=== PATIENT | female | born 1965 | race Caucasian/White ===

== ENCOUNTER 2021-05-27 18:41 | Inpatient (IN) | payer OTHER ==
[~2021-05-27] VITALS: Ht 162 cm; Wt 134.8 kg
[2021-05-27] MEDS ORDERED: RT-ALBUTEROL INHALER HFA (VENTOLIN HFA) 18 GM IH ONE (19:20)
[2021-05-27] MEDS ORDERED: LACTATED RINGERS 1,000 ML IV ONE ×2 (19:20→19:30)
[2021-05-27 19:39] LABS: BASOPHILS % (AUTO) 0 % (0-10); EOSINOPHILS % (AUTO) 0 % (0-10); HEMATOCRIT 44 % (35-52); HEMOGLOBIN 14.3 g/dL (11.5-16.0); LYMPHOCYTES # (AUTO) 1.9 10^3/uL (1.0-4.0); LYMPHOCYTES % (AUTO) 37 % (12-44); MEAN CORPUSCULAR HEMOGLOBIN 30 pg (25-34); MEAN CORPUSCULAR HGB CONC 32 g/dL (32-36); MEAN CORPUSCULAR VOLUME 92 fL (80-99); MEAN PLATELET VOLUME 12.1 fL (9.0-12.2); MONOCYTES # (AUTO) 0.3 10^3/uL (0.0-1.0); MONOCYTES % (AUTO) 5 % (0-12); NEUTROPHILS # (AUTO) 2.9 10^3/uL (1.8-7.8); NEUTROPHILS % (AUTO) 57 % (42-75); PLATELET COUNT 200 10^3/uL (130-400)
[2021-05-27] MEDS ORDERED: dexAMETHasone 6 MG TAB (DECADRON) PO STA (19:50)
[2021-05-27 20:05] LABS: INR 0.9 (0.8-1.4); PROTHROMBIN TIME PATIENT 12.6 SEC (12.2-14.7)
[2021-05-27 20:12] LABS: ALBUMIN 3.8 GM/DL (3.2-4.5); BILIRUBIN,TOTAL 0.5 MG/DL (0.1-1.0); CALCIUM 8.7 MG/DL (8.5-10.1); CREATININE SERUM 1.03 MG/DL (0.60-1.30); POTASSIUM 4.1 MMOL/L (3.6-5.0); TOTAL PROTEIN 7.4 GM/DL (6.4-8.2)
--- NOTE | 2021-05-27 20:21 | Diagnostic Imaging Report ---
EXAMINATION: Chest 1 view HISTORY: Sepsis. Covid positive. COMPARISON: None available. FINDINGS: The lung volumes are normal. Patchy opacities are seen in the left mid and lower lung. No large pleural effusion or pneumothorax is seen. The cardiomediastinal silhouette is normal in size and contour. No acute osseous abnormality is seen. IMPRESSION: 1. Patchy opacities in the mid and lower left lung, concerning for pneumonia. No pleural effusion. Dictated by: Dictated on workstation # [id number]
--- NOTE | 2021-05-27 20:51 | ED General ---
General Chief Complaint: Respiratory Problems Stated Complaint: COVID POSITIVE/ SOB Nursing Triage Note: stated symptoms started last wednesday, tested positive on wednesday for COVID, states has not eaten, has had lose stools Source of Information: Patient Exam Limitations: No Limitations History of Present Illness Date Seen by Provider: May 27, 2021 Time Seen by Provider: 19:15 Initial Comments Here with report of shortness of air. Has history of Covid positive test as of May 22 but onset of symptoms back to May 18 or . is also here who was positive and had positive test on May 17. She does complain of shortness of air worsening with cough, fever, chills, fatigue, headache, weakness and overall just not feeling well. Denies nausea or vomiting. States she would have got tested earlier but she was just too tired to test. She and her both sought care in [place] last night but the waiting room was too busy so they went home. Primary care is in [place]. Timing/Duration: Getting Worse, Other (7 to 10 days) Severity: Moderate Associated Systoms: No Chest Pain; Cough, Fever/Chills, Headaches; No Nausea/Vo miting; Shortness of Air, Weakness Allergies and Home Medications Allergies Coded Allergies: No Known Drug Allergies (Unverified , 05/27/21) Patient Home Medication List Home Medication List Reviewed: Yes Review of Systems Review of Systems Constitutional: see HPI, chills, fever, malaise, weakness EENTM: nose congestion; No throat pain Respiratory: cough, short of breath Cardiovascular: no symptoms reported Gastrointestinal: No abdominal pain; loss of appetite; No nausea, No vomiting Genitourinary: no symptoms reported : No Musculoskeletal: muscle pain, muscle weakness Skin: no symptoms reported Psychiatric/Neurological: See HPI Hematologic/Lymphatic: No Symptoms Reported All Other Systems Reviewed Negative Unless Noted: Yes Past Chvuuex-Mfpwkf-Ueijon Hx Patient Social History Tobacco Use?: No Use of E-Cig and/or Vaping dev: No Substance use?: No Alcohol Use?: No Past Medical History Surgeries: Yes Section Respiratory: No Cardiac: No Neurological: No : No Genitourinary: No Gastrointestinal: No Musculoskeletal: No Endocrine: No HEENT: No Family Medical History Reviewed and Corrections made No Pertinent Family Hx Physical Exam-Suspected Sepsis Physical Exam Vital Signs Vital Signs - First Documented 05/27/21 05/27/21 19:10 19:16 Temp 38.6 Pulse 105 Resp 22 B/P (MAP) 144/78 (100) Pulse Ox 89 O2 Delivery Room Air O2 Flow Rate 2.00 Capillary Refill : Less Than 3 Seconds Blood Pressure Mean: 100 Height, Weight, BMI Height: '" Weight: lbs. oz. kg; 51.00 BMI Method: General Appearance: No Apparent Distress, WD/WN HEENT: PERRL/EOMI, Pharynx Normal Neck: Non Tender, Supple Respiratory: Crackles, Expiration, Wheezing Cardiovascular: Regular Rate, Rhythm, No Murmur Gastrointestinal: Non Tender, Soft Back: Normal Inspection, No CVA Tenderness, No Vertebral Tenderness Extremity: Normal Range of Motion, Non Tender Neurologic/Psychiatric: Alert, Oriented x3 Skin: normal color, warm/dry Focused Exam Lactate Level 05/27/21 19:30: Lactic Acid Level 1.37 Lactic Acid Level Laboratory Tests Test 05/27/21 19:30 Lactic Acid Level 1.37 MMOL/L (0.50-2.00) Progress/Results/Core Measures Suspected Sepsis SIRS Temperature: Pulse: 105 Respiratory Rate: 22 Laboratory Tests 05/27/21 19:20: White Blood Count 5.0 Blood Pressure 144 /78 Mean: 100 05/27/21 19:30: Lactic Acid Level 1.37 Laboratory Tests 05/27/21 19:20: Platelet Count 200 05/27/21 19:30: Creatinine 1.03, INR Comment 0.9, Total Bilirubin 0.5 Results/Orders Lab Results Laboratory Tests Test 05/27/21 19:20 05/27/21 19:30 Range/Units White Blood Count 5.0 4.3-11.0 10^3/uL Red Blood Count 4.82 3.80-5.11 10^6/uL Hemoglobin 14.3 11.5-16.0 g/dL Hematocrit 44 35-52 % Mean Corpuscular Volume 92 80-99 fL Mean Corpuscular Hemoglobin 30 25-34 pg Mean Corpuscular Hemoglobin Concent 32 32-36 g/dL Red Cell Distribution Width 13.8 10.0-14.5 % Platelet Count 200 130-400 10^3/uL Mean Platelet Volume 12.1 9.0-12.2 fL Immature Granulocyte % (Auto) 0 % Neutrophils (%) (Auto) 57 42-75 % Lymphocytes (%) (Auto) 37 12-44 % Monocytes (%) (Auto) 5 0-12 % Eosinophils (%) (Auto) 0 0-10 % Basophils (%) (Auto) 0 0-10 % Neutrophils # (Auto) 2.9 1.8-7.8 10^3/uL Lymphocytes # (Auto) 1.9 1.0-4.0 10^3/uL Monocytes # (Auto) 0.3 0.0-1.0 10^3/uL Eosinophils # (Auto) 0.0 0.0-0.3 10^3/uL Basophils # (Auto) 0.0 0.0-0.1 10^3/uL Immature Granulocyte # (Auto) 0.0 0.0-0.1 10^3/uL Prothrombin Time 12.6 12.2-14.7 SEC INR Comment 0.9 0.8-1.4 Activated Partial Thromboplast Time 28 24-35 SEC Sodium Level 134 L 135-145 MMOL/L Potassium Level 4.1 3.6-5.0 MMOL/L Chloride Level 96 L 98-107 MMOL/L Carbon Dioxide Level 28 21-32 MMOL/L Anion Gap 10 5-14 MMOL/L Blood Urea Nitrogen 14 7-18 MG/DL Creatinine 1.03 0.60-1.30 MG/DL Estimat Glomerular Filtration Rate 56 BUN/Creatinine Ratio 14 Glucose Level 108 H 70-105 MG/DL Lactic Acid Level 1.37 0.50-2.00 MMOL/L Calcium Level 8.7 8.5-10.1 MG/DL Corrected Calcium 8.9 8.5-10.1 MG/DL Total Bilirubin 0.5 0.1-1.0 MG/DL Aspartate Amino Transf (AST/SGOT) 71 H 5-34 U/L Alanine Aminotransferase (ALT/SGPT) 51 0-55 U/L Alkaline Phosphatase 64 40-136 U/L C-Reactive Protein High Sensitivity 5.45 H 0.00-0.50 MG/DL Total Protein 7.4 6.4-8.2 GM/DL Albumin 3.8 3.2-4.5 GM/DL My Orders Orders - LEXIS CHU MD Albuterol Inhaler (Ventolin Hfa) (05/27/21 19:20) Lactated Ringers (Lr 1000 Ml Iv Solution (05/27/21 19:20) Dexamethasone Tablet (Decadron Tablet) (05/27/21 19:50) Fibrin Degradation Products (05/27/21 20:25) Medications Given in ED Current Medications Medications Dose Ordered Sig/Rubin Route Start Time Stop Time Status Last Admin Dose Admin Albuterol Sulfate 18 gm STK-MED ONCE IH 05/27/21 19:20 05/27/21 19:23 DC 05/27/21 19:28 18 GM Lactated Ringer's 1,000 ml @ ud STK-MED ONCE IV 05/27/21 19:20 05/27/21 19:23 DC 05/27/21 19:28 1,000 MLS/HR Vital Signs/I&O 05/27/21 05/27/21 19:10 19:16 Temp 38.6 Pulse 105 Resp 22 B/P (MAP) 144/78 (100) Pulse Ox 89 93 O2 Delivery Room Air O2 Flow Rate 2.00 Capillary Refill : Less Than 3 Seconds Blood Pressure Mean: 100 Progress Note : Progress Note Seen and evaluated. Sepsis protocol initiated. LR 1 L bolus, albuterol inhaler 4 puffs via spacer and Decadron 6 mg p.o. ordered. Patient was 88% on room air and O2 initiated at 2 L via nasal cannula. Monitor patient. 2031: Somewhat better after initial therapy but still requiring oxygen. Chest x-ray findings consistent with Covid pneumonia without bacterial involvement currently. We will initiate COVID-19 order set. I did discuss the case with Dr. Hunter and she accepts patient for admission, inpatient status to the hospitalist service agrees with COVID-19 order set. Discussed with patient and family who agree with plan. Diagnostic Imaging Diagonstic Imaging: Xray Plain Films/CT/US/NM/MRI: chest Comments [facility], [place] NAME: BETTY MCCALL Nela [facility] REC#: [id number] PT STATUS: REG ER : 1965 PHYSICIAN: CARLOS RUELAS APRN ADMIT DATE: 05/27/21/ER Signed Date of Exam:05/27/21 CHEST 1 VIEW, AP/PA ONLY EXAMINATION: Chest 1 view HISTORY: Sepsis. Covid positive. COMPARISON: None available. FINDINGS: The lung volumes are normal. Patchy opacities are seen in the left mid and lower lung. No large pleural effusion or pneumothorax is seen. The cardiomediastinal silhouette is normal in size and contour. No acute osseous abnormality is seen. IMPRESSION: 1. Patchy opacities in the mid and lower left lung, concerning for pneumonia. No pleural effusion. Dictated by: Dictated on workstation # [id number] Dict: 05/27/[id number] Trans: 05/27/212026 [facility] [id number] Interpreted by: LAYA MARQUEZ DO Electronically signed by: LAYA MARQUEZ DO 05/27/212026 Reviewed: Reviewed by Me Departure Communication (Admissions) Time/Spoke to Admitting Phy: 20:32 Impression Primary Impression: Pneumonia due to COVID-19 virus Additional Impression: Hypoxia Disposition: ADMITTED INPATIENT Condition: Stable Admissions Decision to Admit Reason: Admit from ER (General) Decision to Admit/Date: May 27, 2021 Time/Decision to Admit Time: 20:32 LEXIS CHU MD May 27, 2021 20:51
[2021-05-27] MEDS ORDERED: DOCUSATE SODIUM 100 MG (COLACE) CAP PO PRN (22:00)
[2021-05-27] MEDS ORDERED: ONDANSETRON 4 MG/2 ML (SDV) Z0FRAN IVP PRN (22:00)
[2021-05-27] MEDS ORDERED: diphenhydrAMINE 25 MG TAB (BENADRYL) PO PRN (22:00)
[2021-05-27] MEDS ORDERED: HYDROcodone/APAP 5 MG/325 MG (LORTAB) TAB PO PRN (22:00)
[2021-05-27] MEDS ORDERED: ALPRAZolam 0.25 MG (XANAX) TAB PO PRN (22:00)
[2021-05-27] MEDS ORDERED: RT-ALBUTEROL INHALER HFA (VENTOLIN HFA) 18 GM IH SCH (22:00)
[2021-05-27] MEDS ORDERED: ACETAMINOPHEN 500 MG TAB (TYLENOL) PO PRN (22:00)
[2021-05-27] MEDS ORDERED: MELATONIN 3 MG TABLET PO PRN (22:00)
[2021-05-27] MEDS ORDERED: ONDANSETRON 4 MG (ZOFRAN) ORAL DISSOLVE TAB PO PRN (22:00)
[2021-05-27] MEDS ORDERED: CALCIUM CARBONATE 500 MG (TUMS) TAB.CHEW PO PRN (22:00)
[2021-05-27] MEDS ORDERED: LOPERAMIDE 2 MG (IMODIUM) TABLET PO PRN (22:00)
[2021-05-27 22:28] VITALS: BP 135/82
[2021-05-27 22:30] VITALS: BP 135/82
[2021-05-27 23:28] VITALS: BP 146/82
[2021-05-27 23:30] VITALS: BP 146/82
[2021-05-28] MEDS ORDERED: RT-ALBUTEROL INHALER HFA (VENTOLIN HFA) 18 GM IH PRN ×2 (00:15→02:00)
[2021-05-28] MEDS ORDERED: LACTATED RINGERS 1,000 ML IV SCH (00:15)
[2021-05-28] MEDS ORDERED: guaiFENesin SYRUP 100 MG/5 ML 10 ML (ROBITUSSIN SF) PO PRN (00:15)
[2021-05-28] MEDS ORDERED: ONDANSETRON 4 MG/5 ML ORAL SOLN (ZOFRAN) 5 ML PO PRN (00:15)
[2021-05-28] MEDS ORDERED: IPRATROPIUM INHALER (ATROVENT) 12.9 GM INH PRN (00:15)
[2021-05-28] MEDS ORDERED: ENOXAPARIN 40 MG/0.4 ML (LOVENOX) SYR SC SCH (00:15)
[2021-05-28 01:55] VITALS: BP 146/82
[2021-05-28] MEDS ORDERED: ALBUTEROL/IPRATROP (COMBIVENT RESPIMAT) 4 GM INHALER INH SCH (03:00)
[2021-05-28 03:46] VITALS: BP 121/69
[2021-05-28 08:28] LABS: BASOPHILS % (AUTO) 0 % (0-10); EOSINOPHILS % (AUTO) 0 % (0-10); HEMATOCRIT 39 % (35-52); HEMOGLOBIN 12.8 g/dL (11.5-16.0); LYMPHOCYTES # (AUTO) 1.2 10^3/uL (1.0-4.0); LYMPHOCYTES % (AUTO) 38 % (12-44); MEAN CORPUSCULAR HEMOGLOBIN 30 pg (25-34); MEAN CORPUSCULAR HGB CONC 33 g/dL (32-36); MEAN CORPUSCULAR VOLUME 92 fL (80-99); MEAN PLATELET VOLUME 10.6 fL (9.0-12.2); MONOCYTES # (AUTO) 0.2 10^3/uL (0.0-1.0); MONOCYTES % (AUTO) 6 % (0-12); NEUTROPHILS # (AUTO) 1.8 10^3/uL (1.8-7.8); NEUTROPHILS % (AUTO) 56 % (42-75); PLATELET COUNT 186 10^3/uL (130-400); WHITE BLOOD COUNT 3.2 10^3/uL (4.3-11.0)
[2021-05-28 08:46] LABS: ALBUMIN 3.4 GM/DL (3.2-4.5)
[2021-05-28 08:47] LABS: CHLORIDE 101 MMOL/L (98-107); POTASSIUM 4.1 MMOL/L (3.6-5.0); SODIUM 136 MMOL/L (135-145)
[2021-05-28 08:48] VITALS: BP 136/84
[2021-05-28 08:48] LABS: CALCIUM 8.4 MG/DL (8.5-10.1)
[2021-05-28 08:49] LABS: GLUCOSE 126 MG/DL (70-105); TOTAL PROTEIN 6.6 GM/DL (6.4-8.2)
[2021-05-28 08:50] LABS: CARBON DIOXIDE 28 MMOL/L (21-32)
[2021-05-28 08:51] LABS: BILIRUBIN,TOTAL 0.4 MG/DL (0.1-1.0)
[2021-05-28 08:52] LABS: ALKALINE PHOSPHATASE 55 U/L (40-136)
[2021-05-28 08:53] LABS: CREATININE SERUM 0.76 MG/DL (0.60-1.30); GFR ESTIMATED > 60
[2021-05-28 08:54] LABS: BUN/CREATININE RATIO 14
[2021-05-28 08:56] LABS: ALANINE AMINOTRANSFERASE 45 U/L (0-55)
[2021-05-28] MEDS: polyethylene glycoL POWDER 17 GM (MIRALAX) PACK PO SCH ×2 (09:13→21:41)
[2021-05-28] MEDS: dexAMETHasone 6 MG TAB (DECADRON) PO SCH (09:13)
[2021-05-28] MEDS: SENNA W/DOCUSATE (SENOKOT S) TABLET PO SCH ×2 (09:13→21:41)
[2021-05-28] MEDS: ENOXAPARIN 60 MG/0.6 ML (LOVENOX) SYR SC SCH ×2 (09:14→21:45)
[2021-05-28] MEDS ORDERED: ACETAMINOPHEN 325 MG TABLET PO PRN (10:00)
[2021-05-28] MEDS: RT-ALBUTEROL INHALER HFA (VENTOLIN HFA) 18 GM IH SCH ×3 (10:44→21:30)
[2021-05-28] MEDS ORDERED: LEVO50TA6 PO (11:12)
[2021-05-28 12:09] VITALS: BP 110/62
--- NOTE | 2021-05-28 15:31 | History & Physical-Hospitalist ---
History of Present Illness HPI/Chief Complaint Lety Wagner is a 55 year old female with PMH hypothyroidism, morbid obesity, who presented with shortness of breath. She was diagnosed with COVID last week. She attended a wedding about 11 days ago and started having symptoms shortly after. She has been having fevers. She has had a cough. She has had some diarrhea. She lost her sense of taste and smell and says "everything tastes like salt". She denies nausea and vomiting. She denies chest pain. She denies abdominal pain. She has had headaches. She feels weak. She denies leg swelling. She did not get the COVID vaccine. Several family members are also sick. Source: patient Exam Limitations: no limitations Date Seen 05/28/21 Time Seen by a Provider: 10:20 Attending Physician Glo Hunter DO PCP Referring Physician Date of Admission May 27, 2021 at 20:31 Home Medications & Allergies Home Medications Reviewed patient Home Medication Reconciliation performed by pharmacy medication reconciliations renewable energy technician and/or nursing. Patients Allergies have been reviewed. Allergies Allergies Coded Allergies No Known Drug Allergies (Unverified05/27/21) Past Oibvsri-Uxemqz-Gmlrwc Hx Patient Social History Tobacco Use?: No Use of E-Cig and/or Vaping dev: No Substance use?: No Alcohol Use?: Yes Alcohol type: Wine Alcohol Frequency: Once in a while Pt feels they are or have been: No Current Status status: No status: No Advance Directives: Unable to obtain Communicates: Verbally Primary Language: Kazakh Preferred Spoken Language: Kazakh Is interpretation needed?: No Implanted or Applied Medical D: None Past Medical History Surgeries: Section Hypothyroidsim Family Medical History Reviewed and Corrections made No Pertinent Family Hx Review of Systems Constitutional: fever, malaise, weakness EENTM: no symptoms reported Respiratory: cough, phlegm, short of breath Gastrointestinal: diarrhea Genitourinary: no symptoms reported Musculoskeletal: no symptoms reported Skin: no symptoms reported Psychiatric/Neurological: No Symptoms Reported Physical Exam Physical Exam Vital Signs Vital Signs - First Documented 05/27/21 05/27/21 19:10 19:16 Temp 38.6 Pulse 105 Resp 22 B/P (MAP) 144/78 (100) Pulse Ox 89 O2 Delivery Room Air O2 Flow Rate 2.00 Capillary Refill : Less Than 3 Seconds Height, Weight, BMI Height: '" Weight: lbs. oz. kg; 49.64 BMI Method: General Appearance: No Apparent Distress, Obese, Other (appears uncomfortable) HEENT: PERRL/EOMI, Pharynx Normal Neck: Normal Inspection, Supple Respiratory: No Respiratory Distress, Decreased Breath Sounds Cardiovascular: Regular Rate, Rhythm, No Edema, No Murmur Gastrointestinal: Normal Bowel Sounds, Non Tender, Soft Extremity: Normal Inspection, Non Tender, No Pedal Edema Neurologic/Psychiatric: Alert, Oriented x3, No Motor/Sensory Deficits, Other (flat affect) Skin: Normal Color, Warm/Dry Lymphatic: No Adenopathy Results Results/Procedures Labs Laboratory Tests 05/27/21 19:20 05/27/21 19:30 05/28/21 08:16 Patient resulted labs reviewed. Imaging: Reviewed Imaging Report Assessment/Plan Admission Diagnosis Acute respiratory failure due to COVID-19 Admission Status: Inpatient Order (span 2 midnights) Reason for Inpatient Admission: Requiring supplemental oxygen Assessment and Plan Acute respiratory failure due to COVID-19 Pneumonia due to COVID-19 Leukopenia Elevated LFTs Elevated d-dimer COVID positive at outside facility Chest xray consistent with COVID pneumonia D-dimer slightly elevated, monitor Procalcitonin normal, antibiotics not indicated Started on Decadron Outside window for Remdesivir Convalescent plasma ordered, discussed risks/benefits/EUA use and patient agrees Supplemental oxygen as needed Consult pulmonology Morbid obesity Clinically significant, no acute management needs Hypothyroidism Continue Synthroid DVT prophylaxis: Lovenox Diagnosis/Problems Diagnosis/Problems (1) Acute respiratory failure due to COVID-19 Status: Acute (2) Leukopenia Status: Acute Qualifiers: Leukopenia type: unspecified Qualified Codes: D72.819 - Decreased white blood cell count, unspecified (3) Elevated d-dimer Status: Acute (4) Elevated LFTs Status: Acute (5) Morbid obesity Status: Chronic (6) Hypothyroidism Status: Chronic AROLDO DAWN MD May 28, 2021 15:31
[2021-05-28 16:18] VITALS: BP 100/58
[2021-05-28 19:33] VITALS: BP 116/53
[2021-05-29] VITALS (9 sets, daily range): BP systolic 102–122; BP diastolic 53–67
[2021-05-29] MEDS: RT-ALBUTEROL INHALER HFA (VENTOLIN HFA) 18 GM IH SCH ×3 (03:09→21:42)
[2021-05-29] MEDS: LEVOTHYROXINE 50 MCG (LEVOTHROID) TAB PO SCH (06:40)
[2021-05-29 06:42] LABS: BASOPHILS % (AUTO) 0 % (0-10); EOSINOPHILS % (AUTO) 0 % (0-10); HEMATOCRIT 38 % (35-52); HEMOGLOBIN 12.2 g/dL (11.5-16.0); LYMPHOCYTES # (AUTO) 1.1 10^3/uL (1.0-4.0); LYMPHOCYTES % (AUTO) 28 % (12-44); MEAN CORPUSCULAR HEMOGLOBIN 30 pg (25-34); MEAN CORPUSCULAR HGB CONC 32 g/dL (32-36); MEAN CORPUSCULAR VOLUME 93 fL (80-99); MEAN PLATELET VOLUME 10.6 fL (9.0-12.2); MONOCYTES # (AUTO) 0.2 10^3/uL (0.0-1.0); MONOCYTES % (AUTO) 4 % (0-12); NEUTROPHILS # (AUTO) 2.8 10^3/uL (1.8-7.8); NEUTROPHILS % (AUTO) 68 % (42-75); PLATELET COUNT 191 10^3/uL (130-400); WHITE BLOOD COUNT 4.1 10^3/uL (4.3-11.0)
[2021-05-29 06:52] LABS: CHLORIDE 100 MMOL/L (98-107); POTASSIUM 3.9 MMOL/L (3.6-5.0); SODIUM 137 MMOL/L (135-145)
[2021-05-29 06:53] LABS: CALCIUM 7.9 MG/DL (8.5-10.1)
[2021-05-29 06:54] LABS: GLUCOSE 106 MG/DL (70-105)
[2021-05-29 06:55] LABS: CARBON DIOXIDE 26 MMOL/L (21-32)
[2021-05-29 06:58] LABS: CREATININE SERUM 0.76 MG/DL (0.60-1.30); GFR ESTIMATED > 60
[2021-05-29 06:59] LABS: BUN/CREATININE RATIO 11
[2021-05-29] MEDS: polyethylene glycoL POWDER 17 GM (MIRALAX) PACK PO SCH ×2 (09:25→20:54)
[2021-05-29] MEDS: SENNA W/DOCUSATE (SENOKOT S) TABLET PO SCH ×2 (09:25→20:54)
[2021-05-29] MEDS: dexAMETHasone 6 MG TAB (DECADRON) PO SCH (10:21)
[2021-05-29] MEDS: ENOXAPARIN 60 MG/0.6 ML (LOVENOX) SYR SC SCH ×2 (10:21→21:38)
--- NOTE | 2021-05-29 12:01 | Progress Note - Hospitalist ---
Subjective HPI/CC On Admission Date Seen by Provider: May 29, 2021 Time Seen by Provider: 11:00 Lety Wagner is a 55 year old female with PMH hypothyroidism, morbid obesity, who presented with shortness of breath. She was diagnosed with COVID last week. She attended a wedding about 11 days ago and started having symptoms shortly a fter. She has been having fevers. She has had a cough. She has had some diarrhea. She lost her sense of taste and smell and says "everything tastes like salt". She denies nausea and vomiting. She denies chest pain. She denies abdominal pain. She has had headaches. She feels weak. She denies leg swelling. She did not get the COVID vaccine. Several family members are also sick. Subjective/Events-last exam She is feeling better today. She still has some shortness of breath. She still has a cough. She is not having fevers. She has been eating and drinking. Focused Exam Lactate Level 05/27/21 19:30: Lactic Acid Level 1.37 Objective Exam Vital Signs Vital Signs Date Time Temp Pulse Resp B/P (MAP) Pulse Ox O2 Delivery O2 Flow Rate FiO2 05/29/21 10:39 95 High Flow N/C 5.00 05/29/21 08:00 36.2 87 20 102/67 (79) Capillary Refill : Less Than 3 Seconds General Appearance: No Apparent Distress, Obese Respiratory: No Respiratory Distress, Decreased Breath Sounds Cardiovascular: Regular Rate, Rhythm, No Edema, No Murmur Gastrointestinal: Normal Bowel Sounds, Non Tender, Soft Extremity: Normal Inspection, Non Tender, No Pedal Edema Neurologic/Psychiatric: Alert, Oriented x3, No Motor/Sensory Deficits, Other (Flat affect) Skin: Normal Color, Warm/Dry Results/Procedures Lab Laboratory Tests 05/29/21 06:32 Patient resulted labs reviewed. Imaging: Reviewed Imaging Report Assessment/Plan Assessment and Plan Assess & Plan/Chief Complaint Acute respiratory failure due to COVID-19 Pneumonia due to COVID-19 Leukopenia, resolved Elevated LFTs Elevated d-dimer D-dimer improved Procalcitonin negative Continue Decadron Outside window for Remdesivir Convalescent plasma ordered, not yet given Supplemental oxygen as needed, stable Pulmonology consulted Morbid obesity Clinically significant, no acute management needs Hypothyroidism Continue Synthroid DVT prophylaxis: Lovenox Diagnosis/Problems Diagnosis/Problems (1) Acute respiratory failure due to COVID-19 Status: Acute (2) Leukopenia Status: Acute Qualifiers: Leukopenia type: unspecified Qualified Codes: D72.819 - Decreased white blood cell count, unspecified (3) Elevated d-dimer Status: Acute (4) Elevated LFTs Status: Acute (5) Morbid obesity Status: Chronic (6) Hypothyroidism Status: Chronic AROLDO DAWN MD May 29, 2021 12:00
[2021-05-29] MEDS ORDERED: NS IV 500 ML 500 ML ONE (19:37)
[2021-05-30 00:35] VITALS: BP 102/57
[2021-05-30] MEDS: RT-ALBUTEROL INHALER HFA (VENTOLIN HFA) 18 GM IH SCH ×4 (02:17→20:24)
[2021-05-30 04:00] VITALS: BP 118/70
[2021-05-30 05:52] LABS: BASOPHILS % (AUTO) 0 % (0-10); EOSINOPHILS % (AUTO) 0 % (0-10); HEMATOCRIT 38 % (35-52); HEMOGLOBIN 12.1 g/dL (11.5-16.0); LYMPHOCYTES # (AUTO) 0.9 10^3/uL (1.0-4.0); LYMPHOCYTES % (AUTO) 39 % (12-44); MEAN CORPUSCULAR HEMOGLOBIN 30 pg (25-34); MEAN CORPUSCULAR HGB CONC 32 g/dL (32-36); MEAN CORPUSCULAR VOLUME 93 fL (80-99); MEAN PLATELET VOLUME 10.2 fL (9.0-12.2); MONOCYTES # (AUTO) 0.2 10^3/uL (0.0-1.0); MONOCYTES % (AUTO) 9 % (0-12); NEUTROPHILS # (AUTO) 1.2 10^3/uL (1.8-7.8); NEUTROPHILS % (AUTO) 52 % (42-75); PLATELET COUNT 210 10^3/uL (130-400); WHITE BLOOD COUNT 2.4 10^3/uL (4.3-11.0)
[2021-05-30] MEDS: LEVOTHYROXINE 50 MCG (LEVOTHROID) TAB PO SCH (06:26)
[2021-05-30 08:00] VITALS: BP 100/49
[2021-05-30] MEDS: ENOXAPARIN 60 MG/0.6 ML (LOVENOX) SYR SC SCH ×2 (08:29→20:02)
[2021-05-30] MEDS: polyethylene glycoL POWDER 17 GM (MIRALAX) PACK PO SCH ×2 (08:29→20:02)
[2021-05-30] MEDS: SENNA W/DOCUSATE (SENOKOT S) TABLET PO SCH ×2 (08:29→20:02)
--- NOTE | 2021-05-30 09:40 | Pulmonary Consultation ---
History of Present Illness History of Present Illness Date Seen by Provider: May 30, 2021 Time Seen by Provider: 09:35 Reason for Visit: Covid-19 pneumonia History of Present Illness This middle-aged female who is morbidly obese apparently tested positive for Covid on a Wednesday, May 22 but had symptoms back to May 18 or presented to the emergency room with a complaint of for dry cough, fever chills fatigue headache weakness overall not feeling well. Chest x-ray showed bila teral patchy groundglass opacities. She is admitted for Covid pneumonia treatment. She did not have a Covid19 vaccine. Currently she is on nasal cannula and states that she feels weak but no shortness of breath at this time her appetite is mild to moderate present. Denies any diarrhea leg swelling or rash. I have reviewed her electronic medical records, chest x-ray on the PACS. Review of systems per the electronic medical records and, patient and RN.Video visit made for which she agreed. Allergies and Home Medications Allergies Coded Allergies: No Known Drug Allergies (Unverified , 05/27/21) Home Medications Levothyroxine Sodium 50 Mcg Tablet, 50 MCG PO DAILY, (Reported) Past Medical/Social/Family Hx Patient Social History Marrital Status: Tobacco Use?: No Use of E-Cig and/or Vaping dev: No Substance use?: No Alcohol Use?: Yes Alcohol type: Wine Alcohol Frequency: Once in a while Pt stated abuse/neglect: No Current Status status: No status: No Advance Directives: Unable to obtain Communicates: Verbally Primary Language: Tunisian Preferred Spoken Language: Tunisian Is interpretation needed?: No Implanted or Applied Medical D: None Review of Systems Constitutional: see HPI EENTM: see HPI Respiratory: see HPI Cardiovascular: see HPI Gastrointestinal: see HPI Genitourinary: see HPI Musculoskeletal: see HPI Skin: see HPI Psychiatric/Neurological: See HPI Sepsis Event Evaluation Height, Weight, BMI Height: '" Weight: lbs. oz. kg; 49.64 BMI Method: Exam Exam Patient acknowledged, consented, and participated in this virtual visit which was conducted using real time audio/video Vital Signs Date Time Temp Pulse Resp B/P (MAP) Pulse Ox O2 Delivery O2 Flow Rate FiO2 05/30/21 08:00 70 22 100/49 (66) 92 High Flow N/C 6.00 05/30/21 08:00 92 High Flow N/C 6.00 05/30/21 07:10 93 High Flow N/C 6.00 05/30/21 04:00 36.5 72 21 118/70 (86) 93 High Flow N/C 6.00 05/30/21 02:18 94 High Flow N/C 6.00 05/30/21 00:35 36.8 64 21 102/57 (72) 92 High Flow N/C 6.00 05/29/21 22:21 36.4 81 21 118/60 94 High Flow N/C 5.00 05/29/21 21:42 95 High Flow N/C 5.00 05/29/21 20:30 36.4 82 20 122/57 93 High Flow N/C 6.00 05/29/21 20:14 82 21 112/57 94 High Flow N/C 6.50 05/29/21 20:00 93 High Flow N/C 6.00 05/29/21 20:00 36.8 82 21 112/57 (75) 93 High Flow N/C 6.00 05/29/21 16:00 36.2 83 18 111/53 (72) 93 Nasal Cannula 5.00 05/29/21 12:00 36.6 83 16 118/65 (82) 94 Nasal Cannula 5.00 05/29/21 10:39 95 High Flow N/C 5.00 I & O 05/30/21 07:00 Intake Total 1975 ml Output Total 1200 ml Balance 775 ml Height & Weight Height: '" Weight: lbs. oz. kg; 49.64 BMI Method: General Appearance: No Apparent Distress, Obese HEENT: PERRL/EOMI, Pharynx Normal Neck: Normal Inspection, Supple Respiratory: No Respiratory Distress, Decreased Breath Sounds Cardiovascular: Regular Rate, Rhythm, No Edema, No Murmur Capillary Refill: Less Than 3 Seconds Extremity: Normal Inspection, Non Tender, No Pedal Edema Neurologic/Psychiatric: Alert, Oriented x3, No Motor/Sensory Deficits, Other Skin: Normal Color, Warm/Dry Lymphatic: No Adenopathy Results Lab Laboratory Tests 05/29/21 06:32 05/30/21 05:44 Radiology mild interstitial infiltrates. reviewed by me via PACS system. Assessment/Plan Assessment/Plan 1. Covid19 pneumonia 2. Fatigue and malaise 3. Morbid obesity. Recommendations 1. Continue IV Decadron 2. Supplemental oxygenation 3. Awaiting for convalescent plasma 4. Out side the window for remdesvir. 5. Suggest Covid19 vaccine 90 days from recovery 6. Advised her to lose weight to optimal level. 7. DVT prophylaxis and ulcer prophylaxis. 8. Monitor D-dimer level periodically. Thank you for this consultation. Time spent on discussion(mins): 60 Diagnosis/Problems Problems/Diagonsis (1) Pneumonia due to COVID-19 virus Status: Acute (2) Morbid obesity Status: Chronic (3) Hypothyroidism Status: Chronic (4) Elevated LFTs Status: Acute (5) Elevated d-dimer Status: Acute (6) Leukopenia Status: Acute Qualifiers: Qualified Codes: D72.819 - Decreased white blood cell count, unspecified RICHARD DIAZ MD May 30, 2021 09:40
[2021-05-30] MEDS: dexAMETHasone 6 MG TAB (DECADRON) PO SCH (10:04)
[2021-05-30 12:00] VITALS: BP 111/51
[2021-05-30] MEDS: guaiFENesin/CODEINE (ROBITUSSIN AC) 10ML UDC PO PRN (13:25)
--- NOTE | 2021-05-30 13:54 | Progress Note - Hospitalist ---
Subjective HPI/CC On Admission Date Seen by Provider: May 30, 2021 Time Seen by Provider: 11:05 Lety Wagner is a 55 year old female with PMH hypothyroidism, morbid obesity, who presented with shortness of breath. She was diagnosed with COVID last week. She attended a wedding about 11 days ago and started having symptoms shortly a fter. She has been having fevers. She has had a cough. She has had some diarrhea. She lost her sense of taste and smell and says "everything tastes like salt". She denies nausea and vomiting. She denies chest pain. She denies abdominal pain. She has had headaches. She feels weak. She denies leg swelling. She did not get the COVID vaccine. Several family members are also sick. Subjective/Events-last exam She is feeling a little bit better. She is not short of breath. She still has a cough. She has been eating and drinking better. She has been up and walking back and forth to the bathroom. She is not getting more short of breath with exertion. Focused Exam Lactate Level 05/27/21 19:30: Lactic Acid Level 1.37 Objective Exam Vital Signs Vital Signs Date Time Temp Pulse Resp B/P (MAP) Pulse Ox O2 Delivery O2 Flow Rate FiO2 05/30/21 12:00 36.6 73 22 111/51 (71) 92 High Flow N/C 6.00 Capillary Refill : Less Than 3 Seconds General Appearance: No Apparent Distress, Obese Respiratory: Lungs Clear, Normal Breath Sounds, No Respiratory Distress Cardiovascular: Regular Rate, Rhythm, No Edema, No Murmur Gastrointestinal: Normal Bowel Sounds, Non Tender, Soft Extremity: Normal Inspection, Non Tender, No Pedal Edema Neurologic/Psychiatric: Alert, Oriented x3, No Motor/Sensory Deficits, Normal Mood/Affect Skin: Normal Color, Warm/Dry Results/Procedures Lab Laboratory Tests 05/30/21 05:44 Patient resulted labs reviewed. Imaging: Reviewed Imaging Report Assessment/Plan Assessment and Plan Assess & Plan/Chief Complaint Acute respiratory failure due to COVID-19 Pneumonia due to COVID-19 Lymphopenia associated with COVID-19 Elevated LFTs Elevated d-dimer Continue Decadron Outside window for Remdesivir s/p 1 unit convalescent plasma Supplemental oxygen as needed, stable Pulmonology consulted Morbid obesity Clinically significant, no acute management needs Hypothyroidism Continue Synthroid DVT prophylaxis: Lovenox Diagnosis/Problems Diagnosis/Problems (1) Acute respiratory failure due to COVID-19 Status: Acute (2) Lymphopenia associated with COVID-19 Status: Acute (3) Elevated d-dimer Status: Acute (4) Elevated LFTs Status: Acute (5) Morbid obesity Status: Chronic (6) Hypothyroidism Status: Chronic AROLDO DAWN MD May 30, 2021 13:54
[2021-05-30 15:30] VITALS: BP 129/60
[2021-05-30] MEDS ORDERED: CALCIUM CARBONATE 500 MG (TUMS) TAB.CHEW PO PRN (16:00)
[2021-05-30] MEDS ORDERED: PANTOPRAZOLE 40 MG (PROTONIX) TAB PO NR (16:15)
[2021-05-30 19:23] VITALS: BP 113/59
[2021-05-31] VITALS: BP 138/62
[2021-05-31] MEDS: RT-ALBUTEROL INHALER HFA (VENTOLIN HFA) 18 GM IH SCH ×4 (03:12→21:17)
[2021-05-31 04:00] VITALS: BP 118/56
[2021-05-31] MEDS: guaiFENesin/CODEINE (ROBITUSSIN AC) 10ML UDC PO PRN ×2 (04:15→18:22)
[2021-05-31] MEDS: LEVOTHYROXINE 50 MCG (LEVOTHROID) TAB PO SCH (06:14)
[2021-05-31 06:15] LABS: BASOPHILS % (AUTO) 0 % (0-10); EOSINOPHILS % (AUTO) 0 % (0-10); HEMATOCRIT 37 % (35-52); LYMPHOCYTES % (AUTO) 28 % (12-44); MEAN CORPUSCULAR HEMOGLOBIN 30 pg (25-34); MEAN CORPUSCULAR HGB CONC 32 g/dL (32-36); MEAN CORPUSCULAR VOLUME 94 fL (80-99); MEAN PLATELET VOLUME 10.6 fL (9.0-12.2); MONOCYTES # (AUTO) 0.3 10^3/uL (0.0-1.0); MONOCYTES % (AUTO) 8 % (0-12); NEUTROPHILS # (AUTO) 2.1 10^3/uL (1.8-7.8); NEUTROPHILS % (AUTO) 63 % (42-75); PLATELET COUNT 247 10^3/uL (130-400); WHITE BLOOD COUNT 3.4 10^3/uL (4.3-11.0)
[2021-05-31 06:26] LABS: CHLORIDE 103 MMOL/L (98-107); POTASSIUM 3.8 MMOL/L (3.6-5.0); SODIUM 141 MMOL/L (135-145)
[2021-05-31 06:28] LABS: CALCIUM 8.3 MG/DL (8.5-10.1); GLUCOSE 116 MG/DL (70-105)
[2021-05-31 06:30] LABS: CARBON DIOXIDE 27 MMOL/L (21-32)
[2021-05-31 06:32] LABS: CREATININE SERUM 0.71 MG/DL (0.60-1.30); GFR ESTIMATED > 60
[2021-05-31 06:33] LABS: BUN/CREATININE RATIO 11
[2021-05-31 08:04] VITALS: BP 104/49
[2021-05-31] MEDS: PANTOPRAZOLE 40 MG (PROTONIX) TAB PO SCH (08:45)
[2021-05-31] MEDS: SENNA W/DOCUSATE (SENOKOT S) TABLET PO SCH ×2 (08:45→20:06)
[2021-05-31] MEDS: polyethylene glycoL POWDER 17 GM (MIRALAX) PACK PO SCH ×2 (08:45→20:06)
[2021-05-31] MEDS: ENOXAPARIN 60 MG/0.6 ML (LOVENOX) SYR SC SCH ×2 (08:45→20:07)
[2021-05-31] MEDS: dexAMETHasone 6 MG TAB (DECADRON) PO SCH (08:45)
[2021-05-31 12:00] VITALS: BP 100/50
--- NOTE | 2021-05-31 12:15 | Progress Note - Hospitalist ---
Subjective HPI/CC On Admission Date Seen by Provider: May 31, 2021 Time Seen by Provider: 11:15 Lety Wagner is a 55 year old female with PMH hypothyroidism, morbid obesity, who presented with shortness of breath. She was diagnosed with COVID last week. She attended a wedding about 11 days ago and started having symptoms shortly after. She has been having fevers. She has had a cough. She has had some diarrhea. She lost her sense of taste and smell and says "everything tastes like salt". She denies nausea and vomiting. She denies chest pain. She denies abdominal pain. She has had headaches. She feels weak. She denies leg swelling. She did not get the COVID vaccine. Several family members are also sick. Subjective/Events-last exam She is feeling better today. She is not short of breath. She still has a cough. She has been eating and drinking. She denies nausea and vomiting. She is not having any diarrhea. She has been up and moving around. Objective Exam Vital Signs Vital Signs Date Time Temp Pulse Resp B/P (MAP) Pulse Ox O2 Delivery O2 Flow Rate FiO2 05/31/21 08:04 35.7 63 18 104/49 (67) 94 High Flow N/C 2.00 Capillary Refill : Less Than 3 Seconds General Appearance: No Apparent Distress, Obese Respiratory: Lungs Clear, Normal Breath Sounds, No Respiratory Distress Cardiovascular: Regular Rate, Rhythm, No Edema, No Murmur Gastrointestinal: Normal Bowel Sounds, Non Tender, Soft Extremity: Normal Inspection, Non Tender, No Pedal Edema Neurologic/Psychiatric: Alert, Oriented x3, No Motor/Sensory Deficits, Normal Mood/Affect Skin: Normal Color, Warm/Dry Results/Procedures Lab Laboratory Tests 05/31/21 05:58 Patient resulted labs reviewed. Imaging: Reviewed Imaging Report Assessment/Plan Assessment and Plan Assess & Plan/Chief Complaint Acute respiratory failure due to COVID-19 Pneumonia due to COVID-19 Lymphopenia associated with COVID-19 Elevated LFTs Elevated d-dimer Continue Decadron Outside window for Remdesivir s/p 1 unit convalescent plasma Supplemental oxygen as needed, worsened yesterday, improved today Morbid obesity Clinically significant, no acute management needs Hypothyroidism Continue Synthroid DVT prophylaxis: Lovenox Diagnosis/Problems Diagnosis/Problems (1) Acute respiratory failure due to COVID-19 Status: Acute (2) Lymphopenia associated with COVID-19 Status: Acute (3) Elevated d-dimer Status: Acute (4) Elevated LFTs Status: Acute (5) Morbid obesity Status: Chronic (6) Hypothyroidism Status: Chronic AROLDO DAWN MD May 31, 2021 12:15
[2021-05-31 15:12] VITALS: BP 112/64
[2021-05-31 19:16] VITALS: BP 117/67
[2021-06-01] VITALS (7 sets, daily range): BP systolic 106–130; BP diastolic 51–79
[2021-06-01] MEDS: RT-ALBUTEROL INHALER HFA (VENTOLIN HFA) 18 GM IH SCH ×4 (02:33→20:16)
[2021-06-01] MEDS: LEVOTHYROXINE 50 MCG (LEVOTHROID) TAB PO SCH (06:34)
[2021-06-01] MEDS: SENNA W/DOCUSATE (SENOKOT S) TABLET PO SCH ×2 (08:31→20:15)
[2021-06-01] MEDS: guaiFENesin/CODEINE (ROBITUSSIN AC) 10ML UDC PO PRN ×4 (08:31→20:15)
[2021-06-01] MEDS: PANTOPRAZOLE 40 MG (PROTONIX) TAB PO SCH (08:31)
[2021-06-01] MEDS: dexAMETHasone 6 MG TAB (DECADRON) PO SCH (08:31)
[2021-06-01] MEDS: polyethylene glycoL POWDER 17 GM (MIRALAX) PACK PO SCH ×2 (08:31→20:15)
[2021-06-01] MEDS: ENOXAPARIN 60 MG/0.6 ML (LOVENOX) SYR SC SCH ×2 (08:31→20:15)
--- NOTE | 2021-06-01 11:33 | Progress Note - Hospitalist ---
Subjective HPI/CC On Admission Date Seen by Provider: Jun 01, 2021 Time Seen by Provider: 10:55 Lety Wagner is a 55 year old female with PMH hypothyroidism, morbid obesity, who presented with shortness of breath. She was diagnosed with COVID last week. She attended a wedding about 11 days ago and started having symptoms shortly after. She has been having fevers. She has had a cough. She has had some diarrhea. She lost her sense of taste and smell and says "everything tastes like salt". She denies nausea and vomiting. She denies chest pain. She denies abdominal pain. She has had headaches. She feels weak. She denies leg swelling. She did not get the COVID vaccine. Several family members are also sick. Subjective/Events-last exam She says she feels about the same. She has been having coughing spells. She does not feel short of breath. She has not been getting out of bed except to go to the restroom. She has been eating and drinking. She has no other complaints or concerns. Objective Exam Vital Signs Vital Signs Date Time Temp Pulse Resp B/P (MAP) Pulse Ox O2 Delivery O2 Flow Rate FiO2 06/01/21 08:00 94 High Flow N/C 6.00 06/01/21 07:59 36.5 65 22 106/51 (69) Capillary Refill : Less Than 3 Seconds General Appearance: No Apparent Distress, Obese Respiratory: No Respiratory Distress, Decreased Breath Sounds Cardiovascular: Regular Rate, Rhythm, No Edema, No Murmur Gastrointestinal: Normal Bowel Sounds, Non Tender, Soft Extremity: Normal Inspection, Non Tender, No Pedal Edema Neurologic/Psychiatric: Alert, Oriented x3, No Motor/Sensory Deficits, Other (Flat affect) Skin: Normal Color, Warm/Dry Results/Procedures Lab Patient resulted labs reviewed. Imaging: Reviewed Imaging Report Assessment/Plan Assessment and Plan Assess & Plan/Chief Complaint Acute respiratory failure due to COVID-19 Pneumonia due to COVID-19 Lymphopenia associated with COVID-19 Elevated LFTs Elevated d-dimer Continue Decadron Outside window for Remdesivir s/p 1 unit convalescent plasma Supplemental oxygen as needed, fluctuating requirements, 2 L on my exam Morbid obesity Clinically significant, no acute management needs Hypothyroidism Continue Synthroid DVT prophylaxis: Lovenox Diagnosis/Problems Diagnosis/Problems (1) Acute respiratory failure due to COVID-19 Status: Acute (2) Lymphopenia associated with COVID-19 Status: Acute (3) Elevated d-dimer Status: Acute (4) Elevated LFTs Status: Acute (5) Morbid obesity Status: Chronic (6) Hypothyroidism Status: Chronic AROLDO DAWN MD Jun 01, 2021 11:33
[2021-06-02] VITALS (7 sets, daily range): BP systolic 109–132; BP diastolic 61–77
[2021-06-02] MEDS: guaiFENesin/CODEINE (ROBITUSSIN AC) 10ML UDC PO PRN ×3 (00:23→09:23)
[2021-06-02] MEDS: RT-ALBUTEROL INHALER HFA (VENTOLIN HFA) 18 GM IH SCH ×4 (04:06→18:24)
[2021-06-02] MEDS: LEVOTHYROXINE 50 MCG (LEVOTHROID) TAB PO SCH (05:55)
[2021-06-02] MEDS: dexAMETHasone 6 MG TAB (DECADRON) PO SCH (09:23)
[2021-06-02] MEDS: PANTOPRAZOLE 40 MG (PROTONIX) TAB PO SCH (09:23)
[2021-06-02] MEDS: polyethylene glycoL POWDER 17 GM (MIRALAX) PACK PO SCH ×2 (09:52→21:26)
[2021-06-02] MEDS: SENNA W/DOCUSATE (SENOKOT S) TABLET PO SCH ×2 (09:53→21:26)
[2021-06-02] MEDS: ENOXAPARIN 60 MG/0.6 ML (LOVENOX) SYR SC SCH ×2 (10:11→20:03)
--- NOTE | 2021-06-02 13:06 | Pulmonary Progress Note ---
Subjective Date Seen by a Provider: Jun 02, 2021 Time Seen by a Provider: 13:04 Subjective/Events-last exam On decadron for COVID PNA, continues to improve, still on NC at 4 lpm with SpO2 in mid 90's and spont RR in teens.Pt has been feeling better, On recent 6 min walk needed 6 lpm NC Continues on Decadron and Lovenox 60 SQ q 12h Sepsis Event Evaluation Height, Weight, BMI Height: '" Weight: lbs. oz. kg; 49.64 BMI Method: Exam Exam Patient acknowledged, consented, and participated in this virtual visit which was conducted using real time audio/video Vital Signs Date Time Temp Pulse Resp B/P (MAP) Pulse Ox O2 Delivery O2 Flow Rate FiO2 06/02/21 12:00 36.6 71 15 115/75 (88) 95 Nasal Cannula 4.00 06/02/21 10:11 94 5.00 06/02/21 09:52 94 High Flow N/C 4.00 06/02/21 08:00 36.4 70 22 123/77 (92) 90 High Flow N/C 2.00 06/02/21 07:36 94 High Flow N/C 5.00 06/02/21 04:08 36.2 56 20 132/76 (94) 96 Nasal Cannula 4.00 06/02/21 00:28 36.8 60 20 131/61 (84) 97 Nasal Cannula 5.00 06/01/21 21:40 36.5 93 93 06/01/21 21:00 93 High Flow N/C 3.00 06/01/21 20:36 93 High Flow N/C 3.00 06/01/21 19:11 36.5 66 18 106/69 (81) 95 Nasal Cannula 3.00 06/01/21 15:14 36.3 67 18 116/73 (87) 94 Nasal Cannula 3.00 06/01/21 14:20 94 High Flow N/C 3.00 I & O 06/02/21 07:00 Intake Total 1385 ml Output Total 1100 ml Balance 285 ml Height & Weight Height: '" Weight: lbs. oz. kg; 49.64 BMI Method: General Appearance: No Apparent Distress, Obese HEENT: PERRL/EOMI, Pharynx Normal Neck: Normal Inspection, Supple Respiratory: No Respiratory Distress, Decreased Breath Sounds Cardiovascular: Regular Rate, Rhythm, No Edema, No Murmur Capillary Refill: Less Than 3 Seconds Gastrointestinal: non tender, soft Extremity: Normal Inspection, Non Tender, No Pedal Edema Neurologic/Psychiatric: Alert, Oriented x3, No Motor/Sensory Deficits, Other (Flat affect) Skin: Normal Color, Warm/Dry Lymphatic: No Adenopathy Assessment/Plan Assessment/Plan Stable but still has high oxygen needs, will continue Decadron and once oxygen needs go to < 4 lpm can go, otherwise may need to go to SNF Time spent with patient (mins): 15 BAKARI CUTLER MD Jun 02, 2021 13:06
--- NOTE | 2021-06-02 13:11 | Progress Note - Hospitalist ---
Subjective HPI/CC On Admission Date Seen by Provider: Jun 02, 2021 Time Seen by Provider: 13:09 Lety Wagner is a 55 year old female with PMH hypothyroidism, morbid obesity, who presented with shortness of breath. She was diagnosed with COVID last week. She attended a wedding about 11 days ago and started having symptoms shortly after. She has been having fevers. She has had a cough. She has had some diarrhea. She lost her sense of taste and smell and says "everything tastes like salt". She denies nausea and vomiting. She denies chest pain. She denies abdominal pain. She has had headaches. She feels weak. She denies leg swelling. She did not get the COVID vaccine. Several family members are also sick. Subjective/Events-last exam Pt reports feeling ok. No complaints. Did notice some vaginal bleeding this AM but none currently. Objective Exam Vital Signs Vital Signs Date Time Temp Pulse Resp B/P (MAP) Pulse Ox O2 Delivery O2 Flow Rate FiO2 06/02/21 12:00 36.6 71 15 115/75 (88) 95 Nasal Cannula 4.00 Capillary Refill : Less Than 3 Seconds General Appearance: No Apparent Distress, Chronically ill, Obese Respiratory: No Accessory Muscle Use, Decreased Breath Sounds, Other (on 5lpm) Cardiovascular: Regular Rate, Rhythm, No Murmur Gastrointestinal: Normal Bowel Sounds, Soft Neurologic/Psychiatric: Alert, Oriented x3, Depressed Affect (very flat) Results/Procedures Lab Patient resulted labs reviewed. Imaging: Reviewed Imaging Report Assessment/Plan Assessment and Plan Assess & Plan/Chief Complaint Acute respiratory failure due to COVID-19 Pneumonia due to COVID-19 Lymphopenia associated with COVID-19 Elevated LFTs Elevated d-dimer Continue Decadron Outside window for Remdesivir s/p 1 unit convalescent plasma Supplemental oxygen as needed, increased need today and home oxygen study s howed need of 6lpm Discussed not safe to discharge yet with increasing demand Encourage OOB activity Vaginal bleeding Now resolved Likely due to Lovenox but advise this needs outpatient follow as soon as she is recovered from COVID Morbid obesity Clinically significant, no acute management needs Hypothyroidism Continue Synthroid DVT prophylaxis: Lovenox FRANCINE CHAVEZ MD Jun 02, 2021 13:11
[2021-06-03] MEDS: RT-ALBUTEROL INHALER HFA (VENTOLIN HFA) 18 GM IH SCH ×4 (02:14→21:06)
[2021-06-03 03:34] VITALS: BP 117/72
[2021-06-03] MEDS: LEVOTHYROXINE 50 MCG (LEVOTHROID) TAB PO SCH (05:44)
[2021-06-03 07:30] VITALS: BP 178/96
[2021-06-03] MEDS: ENOXAPARIN 60 MG/0.6 ML (LOVENOX) SYR SC SCH ×2 (08:50→20:33)
[2021-06-03] MEDS: dexAMETHasone 6 MG TAB (DECADRON) PO SCH (08:50)
[2021-06-03] MEDS: SENNA W/DOCUSATE (SENOKOT S) TABLET PO SCH ×2 (08:51→20:35)
[2021-06-03] MEDS: PANTOPRAZOLE 40 MG (PROTONIX) TAB PO SCH (08:51)
[2021-06-03] MEDS: polyethylene glycoL POWDER 17 GM (MIRALAX) PACK PO SCH ×2 (08:51→20:36)
--- NOTE | 2021-06-03 10:06 | Progress Note - Hospitalist ---
Subjective HPI/CC On Admission Date Seen by Provider: Jun 03, 2021 Time Seen by Provider: 10:01 Lety Wagner is a 55 year old female with PMH hypothyroidism, morbid obesity, who presented with shortness of breath. She was diagnosed with COVID last week. She attended a wedding about 11 days ago and started having symptoms shortly after. She has been having fevers. She has had a cough. She has had some diarrhea. She lost her sense of taste and smell and says "everything tastes like salt". She denies nausea and vomiting. She denies chest pain. She denies abdominal pain. She has had headaches. She feels weak. She denies leg swelling. She did not get the COVID vaccine. Several family members are also sick. Subjective/Events-last exam Pt reports doing better today but have "boogers the size of a VW" causing congestion. Otherwise no complaints. Down to 2lpm. Discussed option for repeat study today and DC home but decided to wait until tomorrow. She reports she was to be in [place] tomorrow on vacation and is planning to go. I advised her against this as she is still in isolation from COVID. Objective Exam Vital Signs Vital Signs Date Time Temp Pulse Resp B/P (MAP) Pulse Ox O2 Delivery O2 Flow Rate FiO2 06/03/21 08:00 92 Nasal Cannula 2.00 06/03/21 07:30 36.6 64 16 178/96 (123) Capillary Refill : Less Than 3 Seconds General Appearance: No Apparent Distress, Chronically ill, Obese Respiratory: Lungs Clear, No Respiratory Distress Cardiovascular: Regular Rate, Rhythm, No Murmur Neurologic/Psychiatric: Alert, Oriented x3 Results/Procedures Lab Patient resulted labs reviewed. Imaging: Reviewed Imaging Report Assessment/Plan Assessment and Plan Assess & Plan/Chief Complaint Acute respiratory failure due to COVID-19 Pneumonia due to COVID-19 Lymphopenia associated with COVID-19 Elevated LFTs Elevated d-dimer Continue Decadron Outside window for Remdesivir s/p 1 unit convalescent plasma Supplemental oxygen as needed, down to 2lpm Encourage OOB activity Hopefully home tomorrow Vaginal bleeding Now resolved Likely due to Lovenox but advised this needs outpatient follow as soon as she is recovered from COVID Morbid obesity Clinically significant, no acute management needs Hypothyroidism Continue Synthroid DVT prophylaxis: FRANCINE White MD Jun 03, 2021 10:06
[2021-06-03 11:11] VITALS: BP 133/76
--- NOTE | 2021-06-03 11:48 | Pulmonary Progress Note ---
Subjective Date Seen by a Provider: Jun 03, 2021 Time Seen by a Provider: 11:25 Subjective/Events-last exam Patient states that she is breathing better. Oxygen requirements are d ecreasing. D-dimer is reducing. No fever present. Mild cough present. Appetite is improving. She is still on full dose anticoagulation. Sepsis Event Evaluation Height, Weight, BMI Height: '" Weight: lbs. oz. kg; 49.64 BMI Method: Exam Exam Patient acknowledged, consented, and participated in this virtual visit which was conducted using real time audio/video Vital Signs Date Time Temp Pulse Resp B/P (MAP) Pulse Ox O2 Delivery O2 Flow Rate FiO2 06/03/21 11:11 36.6 89 18 133/76 (95) 90 High Flow N/C 2.00 06/03/21 08:00 92 Nasal Cannula 2.00 06/03/21 07:30 36.6 64 16 178/96 (123) 92 High Flow N/C 2.00 06/03/21 06:47 94 High Flow N/C 2.00 06/03/21 03:34 36.2 68 18 117/72 (87) 91 High Flow N/C 2.00 06/03/21 02:14 93 High Flow N/C 2.00 06/02/21 23:37 36.2 67 18 123/71 (88) 93 High Flow N/C 2.00 06/02/21 20:33 92 Nasal Cannula 4.00 06/02/21 19:34 36.6 81 18 109/62 (78) 92 Nasal Cannula 4.00 06/02/21 18:24 93 High Flow N/C 2.00 06/02/21 15:44 92 High Flow N/C 2.00 06/02/21 15:40 36.6 62 20 115/67 (83) 95 Nasal Cannula 4.00 06/02/21 12:00 36.6 71 15 115/75 (88) 95 Nasal Cannula 4.00 I & O 06/03/21 07:00 Intake Total 1295 ml Output Total 1500 ml Balance -205 ml Height & Weight Height: '" Weight: lbs. oz. kg; 49.64 BMI Method: General Appearance: No Apparent Distress, Chronically ill, Obese HEENT: PERRL/EOMI, Pharynx Normal Neck: Normal Inspection, Supple Respiratory: Lungs Clear, No Respiratory Distress Cardiovascular: Regular Rate, Rhythm, No Murmur Capillary Refill: Less Than 3 Seconds Gastrointestinal: non tender, soft Extremity: Normal Inspection, Non Tender, No Pedal Edema Neurologic/Psychiatric: Alert, Oriented x3 Skin: Normal Color, Warm/Dry Lymphatic: No Adenopathy Results Meds reviewed Assessment/Plan Assessment/Plan 1. Covid19 pneumonia 2. Fatigue and malaise 3. Morbid obesity. Recommendations 1. Continue Decadron 2. Supplemental oxygenation 3. Will repeat DDimers and if improving will reduce lovenox 4. Out side the window for remdesvir. 5. Suggest Covid19 vaccine 90 days from recovery 6. Advised her to lose weight to optimal level. 7. Video visit made and discussed with patient. Time spent with patient (mins): 20 Diagnosis/Problems Diagnosis/Problems (1) Pneumonia due to COVID-19 virus Status: Acute (2) Morbid obesity Status: Chronic (3) Hypothyroidism Status: Chronic (4) Elevated LFTs Status: Acute (5) Elevated d-dimer Status: Acute (6) Leukopenia Status: Acute Qualifiers: Qualified Codes: D72.819 - Decreased white blood cell count, unspecified RICHARD DIAZ MD Jun 03, 2021 11:48
[2021-06-03 15:15] VITALS: BP 116/57
[2021-06-03 20:00] VITALS: BP 130/67
[2021-06-03] MEDS: guaiFENesin/CODEINE (ROBITUSSIN AC) 10ML UDC PO PRN (20:33)
[2021-06-03 23:23] VITALS: BP 126/71
[2021-06-04] VITALS (7 sets, daily range): BP systolic 106–121; BP diastolic 68–75
[2021-06-04] MEDS: guaiFENesin/CODEINE (ROBITUSSIN AC) 10ML UDC PO PRN ×2 (00:57→05:11)
[2021-06-04] MEDS: RT-ALBUTEROL INHALER HFA (VENTOLIN HFA) 18 GM IH SCH ×4 (02:20→22:13)
[2021-06-04] MEDS: LEVOTHYROXINE 50 MCG (LEVOTHROID) TAB PO SCH (05:11)
[2021-06-04] MEDS: polyethylene glycoL POWDER 17 GM (MIRALAX) PACK PO SCH ×2 (08:59→19:05)
[2021-06-04] MEDS: PANTOPRAZOLE 40 MG (PROTONIX) TAB PO SCH (08:59)
[2021-06-04] MEDS: ENOXAPARIN 60 MG/0.6 ML (LOVENOX) SYR SC SCH ×2 (08:59→19:57)
[2021-06-04] MEDS: dexAMETHasone 6 MG TAB (DECADRON) PO SCH (08:59)
[2021-06-04] MEDS: SENNA W/DOCUSATE (SENOKOT S) TABLET PO SCH ×2 (09:00→19:05)
--- NOTE | 2021-06-04 09:45 | Diagnostic Imaging Report ---
EXAMINATION: Chest 1 view HISTORY: Covid, pneumonia COMPARISON: 05/27/2021 FINDINGS: Heart size and pulmonary vasculature are stable. Stable patchy interstitial airspace opacities throughout both lungs. No pleural effusion or pneumothorax. The osseous structures are intact. IMPRESSION: 1. Stable patchy interstitial and airspace opacities throughout both lungs compatible with history of Covid-19 and pneumonia. Dictated by: Dictated on workstation # [id number]
--- NOTE | 2021-06-04 10:00 | Pulmonary Progress Note ---
Subjective Date Seen by a Provider: Jun 04, 2021 Time Seen by a Provider: 08:45 Subjective/Events-last exam Patient today states that she is feeling fair but she requiring oxygen up to 5 L of nasal cannula. I was concerned about her pneumonia getting worse hence I ordered a chest x-ray which showed a stable appearance of bilateral patchy infiltrates. She is afebrile with a temperature of 35.7. D-dimer increased to 1.56 hence we will continue full dose Lovenox for now. Sepsis Event Evaluation Height, Weight, BMI Height: '" Weight: lbs. oz. kg; 49.64 BMI Method: Exam Exam Patient acknowledged, consented, and participated in this virtual visit which was conducted using real time audio/video Vital Signs Date Time Temp Pulse Resp B/P (MAP) Pulse Ox O2 Delivery O2 Flow Rate FiO2 06/04/21 09:35 79 91 5.00 91 06/04/21 09:17 92 5.00 06/04/21 08:08 35.7 58 18 111/68 (82) 95 High Flow N/C 5.00 06/04/21 04:00 36.5 52 18 111/70 (84) 95 High Flow N/C 5.00 06/04/21 02:21 93 High Flow N/C 2.00 06/03/21 23:23 36.7 69 20 126/71 (89) 93 High Flow N/C 5.00 06/03/21 21:07 92 High Flow N/C 2.00 06/03/21 20:45 91 High Flow N/C 4.00 06/03/21 20:00 36.0 71 18 130/67 (88) 92 High Flow N/C 2.00 06/03/21 15:15 36.6 101 20 116/57 (76) 93 High Flow N/C 2.00 06/03/21 14:36 94 Nasal Cannula 4.00 06/03/21 11:11 36.6 89 18 133/76 (95) 90 High Flow N/C 2.00 I & O 06/04/21 07:00 Intake Total 1580 ml Balance 1580 ml Height & Weight Height: '" Weight: lbs. oz. kg; 49.64 BMI Method: General Appearance: No Apparent Distress, Chronically ill, Obese HEENT: PERRL/EOMI, Pharynx Normal Neck: Normal Inspection, Supple Respiratory: Lungs Clear, No Respiratory Distress Cardiovascular: Regular Rate, Rhythm, No Murmur Capillary Refill: Less Than 3 Seconds Gastrointestinal: non tender, soft Extremity: Normal Inspection, Non Tender, No Pedal Edema Neurologic/Psychiatric: Alert, Oriented x3 Skin: Normal Color, Warm/Dry Lymphatic: No Adenopathy Results Lab reviewed Meds reviewed Radiology cxr reviewed by me personally and showed stable toni. infiltrate. Assessment/Plan Assessment/Plan 1. Covid19 pneumonia 2. Fatigue and malaise 3. Morbid obesity. Recommendations 1. Continue Decadron 2. Supplemental oxygenation 3. As Ddimers increased will continue full dose lovenox 4. Out side the window for remdesvir. 5. Suggest Covid19 vaccine 90 days from recovery 6. Advised her to lose weight to optimal level. 7. Video visit made and discussed with patient. Time spent with patient (mins): 30 Diagnosis/Problems Diagnosis/Problems (1) Pneumonia due to COVID-19 virus Status: Acute (2) Morbid obesity Status: Chronic (3) Hypothyroidism Status: Chronic (4) Elevated LFTs Status: Acute (5) Elevated d-dimer Status: Acute (6) Leukopenia Status: Acute Qualifiers: Qualified Codes: D72.819 - Decreased white blood cell count, unspecified RICHARD DIAZ MD Jun 04, 2021 10:00
--- NOTE | 2021-06-04 14:04 | Progress Note - Hospitalist ---
Subjective HPI/CC On Admission Date Seen by Provider: Jun 04, 2021 Time Seen by Provider: 13:59 Lety Wagner is a 55 year old female with PMH hypothyroidism, morbid obesity, who presented with shortness of breath. She was diagnosed with COVID last week. She attended a wedding about 11 days ago and started having symptoms shortly after. She has been having fevers. She has had a cough. She has had some diarrhea. She lost her sense of taste and smell and says "everything tastes like salt". She denies nausea and vomiting. She denies chest pain. She denies abdominal pain. She has had headaches. She feels weak. She denies leg swelling. She did not get the COVID vaccine. Several family members are also sick. Subjective/Events-last exam Pt is now up to 5lpm at rest of oxygen. Has been varying. Discussed plan to remain in hospital until oxygen requirements are less. Objective Exam Vital Signs Vital Signs Date Time Temp Pulse Resp B/P (MAP) Pulse Ox O2 Delivery O2 Flow Rate FiO2 06/04/21 12:00 36.4 60 20 115/70 (85) 94 High Flow N/C 5.00 Capillary Refill : Less Than 3 Seconds General Appearance: No Apparent Distress, Obese Cardiovascular: Regular Rate, Rhythm, No Murmur Gastrointestinal: Normal Bowel Sounds, Soft Neurologic/Psychiatric: Alert, Oriented x3 Results/Procedures Lab Patient resulted labs reviewed. Imaging: Reviewed Imaging Report Assessment/Plan Assessment and Plan Assess & Plan/Chief Complaint Acute respiratory failure due to COVID-19 Pneumonia due to COVID-19 Lymphopenia associated with COVID-19 Elevated LFTs Elevated d-dimer Continue Decadron Outside window for Remdesivir s/p 1 unit convalescent plasma Supplemental oxygen as needed, up to 5lpm Encourage OOB activity Pulm consult, appreciate recs Vaginal bleeding Now resolved Likely due to Lovenox but advised this needs outpatient follow as soon as she is recovered from COVID Morbid obesity Clinically significant, no acute management needs Hypothyroidism Continue Synthroid DVT prophylaxis: FRANCINE White MD Jun 04, 2021 14:04
[2021-06-05 04:50] VITALS: BP 118/69
[2021-06-05] MEDS: LEVOTHYROXINE 50 MCG (LEVOTHROID) TAB PO SCH (05:52)
[2021-06-05 08:00] VITALS: BP 126/82
[2021-06-05] MEDS: RT-ALBUTEROL INHALER HFA (VENTOLIN HFA) 18 GM IH SCH (08:02)
--- NOTE | 2021-06-05 08:52 | Pulmonary Progress Note ---
Subjective Date Seen by a Provider: Jun 05, 2021 Time Seen by a Provider: 11:25 Subjective/Events-last exam She is feeling much better however she has occasional wheezing. She walked in the room without oxygen and she felt fine. She is eager to go home and discharge plans are being made. Vital signs are stable. Sepsis Event Evaluation Height, Weight, BMI Height: '" Weight: lbs. oz. kg; 49.64 BMI Method: Exam Exam Patient acknowledged, consented, and participated in this virtual visit which was conducted using real time audio/video Vital Signs Date Time Temp Pulse Resp B/P (MAP) Pulse Ox O2 Delivery O2 Flow Rate FiO2 06/05/21 08:02 95 High Flow N/C 2.00 06/05/21 08:00 35.7 62 16 126/82 (97) 97 High Flow N/C 3.00 06/05/21 04:50 36.2 58 20 118/69 (85) 96 High Flow N/C 5.00 06/04/21 23:55 36.0 55 16 113/70 (84) 97 High Flow N/C 5.00 06/04/21 22:13 96 High Flow N/C 5.00 06/04/21 20:53 36.5 60 94 06/04/21 19:30 91 High Flow N/C 5.00 06/04/21 19:04 36.2 63 20 114/69 (84) 97 High Flow N/C 5.00 06/04/21 15:17 36.4 87 20 121/75 (90) 94 High Flow N/C 5.00 06/04/21 15:05 95 High Flow N/C 5.00 06/04/21 12:00 36.4 60 20 115/70 (85) 94 High Flow N/C 5.00 06/04/21 09:35 79 91 5.00 91 06/04/21 09:17 92 5.00 I & O 06/05/21 07:00 Intake Total 1989 ml Balance 1989 ml Height & Weight Height: '" Weight: lbs. oz. kg; 49.64 BMI Method: General Appearance: No Apparent Distress, Obese HEENT: PERRL/EOMI, Pharynx Normal Neck: Normal Inspection, Supple Respiratory: Lungs Clear, No Respiratory Distress Cardiovascular: Regular Rate, Rhythm, No Murmur Capillary Refill: Less Than 3 Seconds Gastrointestinal: non tender, soft Extremity: Normal Inspection, Non Tender, No Pedal Edema Neurologic/Psychiatric: Alert, Oriented x3 Skin: Normal Color, Warm/Dry Lymphatic: No Adenopathy Results Lab REVIEWED Meds REVIEWED Radiology REVIEWED Assessment/Plan Assessment/Plan 1. Covid19 pneumonia improved significantly 2. Fatigue and malaise improved 3. Morbid obesity. Recommendations 1. Wean Decadron as out patient 2. Currently no need for home oxygen 3. Home when ok with attending physician Time spent with patient (mins): 15 Diagnosis/Problems Diagnosis/Problems (1) Pneumonia due to COVID-19 virus Status: Acute (2) Morbid obesity Status: Chronic (3) Hypothyroidism Status: Chronic (4) Elevated LFTs Status: Acute (5) Elevated d-dimer Status: Acute (6) Leukopenia Status: Acute Qualifiers: Qualified Codes: D72.819 - Decreased white blood cell count, unspecified RICHARD DIAZ MD Jun 05, 2021 08:52
[2021-06-05] MEDS: ENOXAPARIN 60 MG/0.6 ML (LOVENOX) SYR SC SCH (09:20)
[2021-06-05] MEDS: polyethylene glycoL POWDER 17 GM (MIRALAX) PACK PO SCH (09:20)
[2021-06-05] MEDS: SENNA W/DOCUSATE (SENOKOT S) TABLET PO SCH (09:20)
[2021-06-05] MEDS: PANTOPRAZOLE 40 MG (PROTONIX) TAB PO SCH (09:20)
[2021-06-05] MEDS: dexAMETHasone 6 MG TAB (DECADRON) PO SCH (09:20)
--- NOTE | 2021-06-05 11:31 | Discharge Inst-Simple/Standard ---
Discharge Inst-Standard Patient Instructions/Follow Up Plan of Care/Instructions/FU: Please continue to take your medications as written. Please follow up with your primary care doctor to follow up this hospital stay. Activity as Tolerated: Yes Discharge Diet: No Restrictions Return to The Hospital For: Chest pain, shortness of breath, weakness, confusion, fever, low oxygen saturations, if you feel you are getting worse. FRANCINE CHAVEZ MD Jun 05, 2021 11:29
--- NOTE | 2021-06-05 11:41 | Discharge Summary ---
Diagnosis/Chief Complaint Date of Admission May 27, 2021 at 20:31 Date of Discharge Discharge Date: Jun 05, 2021 Admission Diagnosis Acute respiratory failure due to COVID-19 Primary Care Discharge Diagnosis (1) Acute respiratory failure due to COVID-19 Status: Acute (2) Lymphopenia associated with COVID-19 Status: Acute (3) Elevated d-dimer Status: Acute (4) Elevated LFTs Status: Acute (5) Morbid obesity Status: Chronic (6) Hypothyroidism Status: Chronic Discharge Summary Procedures/Consulations TelePulm- Dr Beaulieu Discharge Physical Exam Allergies: Coded Allergies: No Known Drug Allergies (Unverified , 05/27/21) Vitals & I&Os Vital Signs Date Time Temp Pulse Resp B/P (MAP) Pulse Ox O2 Delivery O2 Flow Rate FiO2 06/05/21 08:02 95 High Flow N/C 2.00 06/05/21 08:00 35.7 62 16 126/82 (97) General Appearance: No Apparent Distress, WD/WN, Obese Cardiovascular: Regular Rate, Rhythm, No Murmur Neurologic/Psychiatric: Alert, Oriented x3 Hospital Course Patient was admitted with acute hypoxic respiratory failure due to COVID-19. He was treated with decadron and convalescent plasma. She did well but had difficulty weaning off of oxygen and needed continuous oxygen upon discharge. This was arranged prior to DC. She was discharged home in stable and improved condition to follow-up with her primary care provider. Labs (last 24 hrs) Microbiology 05/27/21 Blood Culture - Final, Complete No growth Patient resulted labs reviewed. Imaging: Reviewed Imaging Report Discussion & Recommendations Discharge Planning: >30 minutes discharge planning Discharge Home Medications: Active Scripts Active Reported Levothyroxine Sodium 50 Mcg Tablet 50 Mcg PO DAILY Instructions to patient/family Please see electronic discharge instructions given to patient. FRANCINE CHAVEZ MD Jun 05, 2021 11:41
[2021-06-05 11:42] VITALS: BP 117/68
== END 2021-06-05 15:15 | disposition home or self-care (01) | DRG 177 ==
LOC: EDUNIT# 18:41 → ER 18:48 → 4TH 20:31
PROVIDERS: ADMIT Internal Medicine; ATTEND Family Medicine
PROC: XW13325 Transfusion of Convalescent Plasma (Nonautologous) into Peripheral Vein, Percutaneous Approach, New Technology Group 5 (ICD-10-PCS; principal; 2021-05-29)
DX: U07.1 COVID-19 (principal); J12.82 Pneumonia due to coronavirus disease 2019; J96.01 Acute respiratory failure with hypoxia; Z68.43 Body mass index [BMI] 50.0-59.9, adult; D72.810 Lymphocytopenia; E03.9 Hypothyroidism, unspecified; Z73.0 Burn-out; E66.01 Morbid (severe) obesity due to excess calories; N93.9 Abnormal uterine and vaginal bleeding, unspecified
CPT/HCPCS: 36415; 71045; 80048; 80053; 83605; 84145; 85025; 85379; 85610; 85730; 86141; 86900; 86901; 87040; 94640; 94664; 94760; 94761; 96360; 96361

== ENCOUNTER 2022-09-17 14:10 | Emergency (ER) | payer OTHER ==
[~2022-09-17] VITALS: Ht 165 cm; Wt 130.0 kg
[~2022-09-17 14:10] MED LIST: LEVO50TA6 PO
--- NOTE | 2022-09-17 14:52 | ED Lower Extremity ---
General Chief Complaint: Lower Extremity Stated Complaint: RT KNEE/ANKLE PAIN Nursing Triage Note: right knee hurt over the weekend and this week, but today she stepped wrong and twisted and now cannot walk History of Present Illness Date Seen by Provider: Sep 17, 2022 Time Seen by Provider: 14:51 Initial Comments Patient reports that she hurt right knee over the weekend. Today she stepped down off a curb and twisted that same knee and reports that she is unable to bear weight on right lower extremity since that time. Has not taken anything for pain. Denies hitting head or LOC. Does report some pain in right ankle in addition. Onset: just prior to arrival Pain/Injury Location: right knee, right ankle Method of Injury: twisted Modifying Factors: Improves With Immobilization; Worse With Movement; Improves With Rest Allergies and Home Medications Allergies Coded Allergies: No Known Drug Allergies (Unverified , 09/17/22) Patient Home Medication List Home Medication List Reviewed: Yes Levothyroxine Sodium (Levothyroxine Sodium) 50 Mcg Tablet, 50 MCG PO DAILY, (Reported) Entered as Reported by: GABRIELLE PERRY on 05/28/21 1112 Review of Systems Constitutional: no symptoms reported Respiratory: no symptoms reported Cardiovascular: no symptoms reported Musculoskeletal: joint pain (right knee and ankle); No joint swelling; muscle pain Skin: no symptoms reported All Other Systems Reviewed Negative Unless Noted: Yes Past Uzobosr-Mvudzv-Qpwkpj Hx Patient Social History Tobacco Use?: No Use of E-Cig and/or Vaping dev: No Substance use?: No Alcohol Use?: Yes Alcohol Frequency: Once in a while Immunizations Up To Date Influenza Vaccine Up-to-Date: No; Not Current Past Medical History Surgery/Hospitalization HX: pmhx: thyroid sx tubal c sections, trell Surgeries: Yes Section Respiratory: No Cardiac: No Neurological: No Genitourinary: No Gastrointestinal: No Musculoskeletal: No Endocrine: No Hypothyroidsim HEENT: No Family Medical History Reviewed Nursing Family Hx No Pertinent Family Hx Physical Exam Vital Signs Vital Signs - First Documented 09/17/22 14:24 Temp 37.0 Pulse 84 Resp 18 B/P (MAP) 134/87 (103) Pulse Ox 98 O2 Delivery Room Air Capillary Refill : Height, Weight, BMI Height: '" Weight: lbs. oz. kg; 47.00 BMI Method: General Appearance: WD/WN, no apparent distress, other (hysterically laughing when I walked in the room, no obvious distress) Back: normal inspection Legs: right leg normal inspection, right leg normal range of motion, right leg no evidence of injury Knees: right knee normal inspection, right knee normal range of motion, right knee no evidence of injury, right knee pain (posterior) Ankles: right ankle normal range of motion, right ankle no evidence of injury, right ankle soft tissue tenderness (right lateral ankle) Neurologic/Psychiatric: alert, normal mood/affect, oriented x 3 Skin: normal color, warm/dry Progress/Results/Core Measures Results/Orders My Orders Orders - KEI AGUILAR APRN Knee, Right, 4 Views Or > (09/17/22 14:52) Ankle, Right, 3 Views (09/17/22 14:54) Vital Signs/I&O 09/17/22 09/17/22 14:24 15:42 Temp 37.0 Pulse 84 84 Resp 18 18 B/P (MAP) 134/87 (103) 134/87 Pulse Ox 98 98 O2 Delivery Room Air Room Air Blood Pressure Mean: 103 Progress Progress Note : Progress Note Patient was in no obvious distress while here in the department. Was able to ambulate on leg despite saying she could not. She ambulated out of the department. XR were negative for fracture. Reasons to return to the ER were discussed with patient. Diagnostic Imaging Diagonstic Imaging: Xray Plain Films/CT/US/NM/MRI: ankle Comments NAME: BETTY MCCALL [facility] REC#: [id number] PT STATUS: DEP ER : 1965 PHYSICIAN: KEI AGUILAR APRN ADMIT DATE: 09/17/22/ER Signed Date of Exam:09/17/22 ANKLE, RIGHT, 3 VIEWS INDICATION: Right ankle injury. TECHNIQUE: AP, oblique and lateral views of the right ankle are obtained. FINDINGS: Small ossific fragments adjacent to the medial malleolus are likely result of old injury. No acute fracture or malalignment is identified. Enthesophytes involve the posterior and plantar aspect of the calcaneus. IMPRESSION: No acute osseous abnormality. Dictated by: Dictated on workstation # [id number] Dict: 09/17/22 1528 Trans: 09/17/22 1606 [id number] [id number] Interpreted by: MAGDALENE KING MD Electronically signed by: MAGDALENE KING MD 09/17/22 1606 Diagonstic Imaging: Xray Plain Films/CT/US/NM/MRI: knee Comments NAME: BETTY MCCALL [facility] REC#: [id number] PT STATUS: DEP ER : 1965 PHYSICIAN: KEI AGUILAR APRN ADMIT DATE: 09/17/22/ER Signed Date of Exam:09/17/22 KNEE, RIGHT, 4 VIEWS OR > INDICATION: Right knee pain. TECHNIQUE: AP, oblique and lateral views of right knee are obtained with sunrise view. FINDINGS: No acute fracture or dislocation is identified. No abnormal lytic or sclerotic focus is seen, and there is no radiopaque foreign body. IMPRESSION: No acute abnormality. Dictated by: Dictated on workstation # [id number] Dict: 09/17/22 1529 Trans: 09/17/22 1600 AS6 [id number] Interpreted by: MAGDALENE KING MD Electronically signed by: MAGDALENE KING MD 09/17/22 1600 Departure Impression Primary Impression: Sprain and strain of ankle Additional Impression: Sprain of knee Qualified Codes: S83.91XA - Sprain of unspecified site of right knee, initial encounter Disposition: HOME, SELF-CARE Condition: Stable Departure-Patient Inst. Decision time for Depature: 15:37 Referrals: NO,LOCAL PHYSICIAN (PCP/Family) Primary Care Physician Patient Instructions: Knee Sprain (DC), Ankle Sprain (DC) Add. Discharge Instructions: 1. Home and rest. 2. Weight bearing as tolerated. 3. Alternate Tylenol/Ibuprofen as needed for pain. 4. Follow up with PCP as needed. 5. Ice and elevate. 6. Return here if worse or concerns. All discharge instructions reviewed with patient and/or family. Voiced understanding. KEI AGUILAR APRN Sep 17, 2022 14:52
--- NOTE | 2022-09-17 15:31 | Diagnostic Imaging Report ---
INDICATION: Right ankle injury. TECHNIQUE: AP, oblique and lateral views of the right ankle are obtained. FINDINGS: Small ossific fragments adjacent to the medial malleolus are likely result of old injury. No acute fracture or malalignment is identified. Enthesophytes involve the posterior and plantar aspect of the calcaneus. IMPRESSION: No acute osseous abnormality. Dictated by: Dictated on workstation # [id number]
--- NOTE | 2022-09-17 15:32 | Diagnostic Imaging Report ---
INDICATION: Right knee pain. TECHNIQUE: AP, oblique and lateral views of right knee are obtained with sunrise view. FINDINGS: No acute fracture or dislocation is identified. No abnormal lytic or sclerotic focus is seen, and there is no radiopaque foreign body. IMPRESSION: No acute abnormality. Dictated by: Dictated on workstation # [id number]
[2022-09-17 15:42] VITALS: BP 134/87
== END 2022-09-17 15:42 | disposition home or self-care (01) ==
LOC: EDUNIT# 14:10 → ER 14:13
DX: S93.401A Sprain of unspecified ligament of right ankle, initial encounter (principal); S96.911A Strain of unspecified muscle and tendon at ankle and foot level, right foot, initial encounter; S83.91XA Sprain of unspecified site of right knee, initial encounter; Z28.310 Unvaccinated for COVID-19; X50.1XXA Overexertion from prolonged static or awkward postures, initial encounter
CPT/HCPCS: 73564; 73610